=== PATIENT | male | born 1950 ===

== ENCOUNTER 2025-02-11 12:03 | Day surgery (SDC) | payer OTHER ==
[~2025-02-11] VITALS: Ht 172.7 cm; Wt 85.5 kg
[~2025-02-11 12:03] MED LIST: Balanced Salt Epinephrine Irrigation Solution 500 mL IR SCH; Diazepam 5 MG Tab PO PRN; Diazepam 5 MG Tab PO SCH; Lidocaine HCl/Pf 1% 5 ML VIAL XX SCH; Moxifloxacin HCL 0.5 MG/0.1 ML 0.4MLSYR LEFTEYE SCH; Ondansetron 4 MG SoluTab MM PRN; PHENYLEPHRINE\\TROPICAMIDE\\TETRACAINE OPHTHALMIC DILATING SOLN LEFTEYE PRN; Povidone-Iodine 450 DROP/30 ML Solution LEFTEYE SCH; Povidone-Iodine 450 DROP/30 ML Solution ONE; Tetracaine HCl/Pf 0.5% Opth Soln 4 ml ONE
[2025-02-11] MEDS ORDERED: Diazepam 5 MG Tab ONE (12:32)
[2025-02-11] MEDS ORDERED: ALBU90OI INH (12:42)
--- NOTE | 2025-02-11 12:54 | NUR ---
02/11/25 1254 ALIVIA ZELAYA TETRACAINE ADMINISTERED AT 1240, PLEDGET PLACED AT 1241. VALIUM 10MG ADMINISTERED AT 1238.
--- NOTE | 2025-02-11 13:30 | NUR ---
02/11/25 [address] LANDA INTO RM DO TO PT HR DIPPING TO 29, DR LANDA MONITORED PT DURING REMAINDER OF CASE [id number]
[2025-02-11 13:49] VITALS: BP 152/96
--- NOTE | 2025-02-11 13:50 | NUR ---
02/11/[address] DISCUSSED LOW HEART RATE WITH PT
[2025-02-13] MEDS ORDERED: VITAMIN D350 MC3 PO (13:51)
[2025-02-13] MEDS ORDERED: STIOLTO RESPIMAT4 G1 INH (13:52)
[2025-02-13] MEDS ORDERED: VITAMIN B-121000 MCG PO (13:53)
== END 2025-02-11 14:14 | disposition home or self-care (01) ==
LOC: ORSCSDS 12:03
PROVIDERS: Student in an Organized Health Care Education/Training Program
PROC: 08RK3JZ Replacement of Left Lens with Synthetic Substitute, Percutaneous Approach (ICD-10-PCS; principal; 2025-02-11 13:30)
DX: H25.813 Combined forms of age-related cataract, bilateral (principal); H21.81 Floppy iris syndrome; Z87.891 Personal history of nicotine dependence; J45.909 Unspecified asthma, uncomplicated; G47.33 Obstructive sleep apnea (adult) (pediatric); Z79.899 Other long term (current) drug therapy
CPT/HCPCS: A9270; V2632

== ENCOUNTER 2025-02-19 10:51 | Day surgery (SDC) | payer OTHER ==
[~2025-02-19] VITALS: Ht 172.7 cm; Wt 85.4 kg
[~2025-02-19 10:51] MED LIST changes: +ALBU90OI INH; -Moxifloxacin HCL 0.5 MG/0.1 ML 0.4MLSYR LEFTEYE SCH; +Moxifloxacin HCL 0.5 MG/0.1 ML 0.4MLSYR RIGHTEYE SCH; +NS 500 ML IV ONE; -PHENYLEPHRINE\\TROPICAMIDE\\TETRACAINE OPHTHALMIC DILATING SOLN LEFTEYE PRN; +PHENYLEPHRINE\\TROPICAMIDE\\TETRACAINE OPHTHALMIC DILATING SOLN RIGHTEYE PRN; -Povidone-Iodine 450 DROP/30 ML Solution LEFTEYE SCH; +Povidone-Iodine 450 DROP/30 ML Solution RIGHTEYE SCH; +STIOLTO RESPIMAT4 G1 INH; +Triamcinolone Inj Susp 40 MG / ML 1ML Vial INJ SCH; +VITAMIN B-121000 MCG PO; +VITAMIN D350 MC3 PO
[2025-02-19] MEDS ORDERED: NS 500 ML IV ONE (11:35)
[2025-02-19] MEDS ORDERED: Dexamethasone Sod Phos 10 MG/ML 1ML VIAL ONE (12:18)
[2025-02-19] MEDS ORDERED: Ondansetron HCl 2 MG / ML 2ML Vial ONE (12:18)
[2025-02-19] MEDS ORDERED: Glycopyrrolate 0.2 MG/ML 5ML VIAL ONE ×2 (12:18)
[2025-02-19] MEDS ORDERED: Midazolam HCl 1MG / ML 2ML Vial ONE ×2 (12:19→12:31)
[2025-02-19] MEDS ORDERED: FentaNYL Citrate 50 MCG/ML 2 ML Injection ONE (12:26)
[2025-02-19 13:00] VITALS: BP 142/99
== END 2025-02-19 13:12 | disposition home or self-care (01) ==
LOC: ORSCSDS 10:51
PROVIDERS: Student in an Organized Health Care Education/Training Program
PROC: 08RJ3JZ Replacement of Right Lens with Synthetic Substitute, Percutaneous Approach (ICD-10-PCS; principal; 2025-02-19 12:30)
DX: H25.811 Combined forms of age-related cataract, right eye (principal); H52.201 Unspecified astigmatism, right eye; Z96.1 Presence of intraocular lens; J45.909 Unspecified asthma, uncomplicated; Z79.899 Other long term (current) drug therapy; Z87.891 Personal history of nicotine dependence
CPT/HCPCS: J1100; J2250; J2405; J3010; J7040; V2632